=== PATIENT | female | born 1970 | race Caucasian/White ===

== ENCOUNTER 2023-03-14 11:16 | Emergency (ER) | payer OTHER ==
[~2023-03-14] VITALS: Ht 165.1 cm; Wt 136.1 kg
[2023-03-14 11:24] VITALS: BP 151/87; PULSE 86; RESP 20; TEMP 98.9; O2SAT 99
[2023-03-14] MEDS ORDERED: LIDOCAINE 1% 500 MG/ 50 ML VIAL INJ ONE (12:45)
[2023-03-14] MEDS ORDERED: VANCOMYCIN 1,000 MG in DEXTROSE 5% 250 ML IV ONE (12:45)
[2023-03-14] MEDS ORDERED: VANCOMYCIN 1,000 MG VIAL ONE (12:55)
[2023-03-14 15:47] VITALS: BP 128/60; PULSE 74; RESP 18; O2SAT 98
== END 2023-03-14 15:49 | disposition home or self-care (01) ==
LOC: MED 11:16
DX: L02.415 Cutaneous abscess of right lower limb (principal); Z79.899 Other long term (current) drug therapy; Z88.0 Allergy status to penicillin
CPT/HCPCS: 10060; 96365; 99284; J2001; J3370